=== PATIENT | male | born 1945 | race Caucasian/White ===

== ENCOUNTER 2019-01-10 16:01 | Inpatient (IN) ==
--- NOTE | 2019-01-10 16:44 | EKG Report ---
Test Performed on : 01/10/2019 4:16:22 PM Test Reason : SOB Blood Pressure : / mmHG Vent. Rate : 132 BPM Atrial Rate : 132 BPM P-R Int : 142 ms QRS Dur : 100 ms QT Int : 394 ms P-R-T Axes : 034 005 105 degrees QTc Int : 583 ms Sinus tachycardia. Possible Inferior infarct , age undetermined Cannot rule out Anterior infarct , age undetermined ST & T wave abnormality, consider lateral ischemia Abnormal ECG When compared with ECG of 12-SEP-2013 10:36, Vent. rate has increased BY 67 BPM Borderline criteria for Inferior infarct are now present ST less depressed in Lateral leads T wave inversion less evident in Anterolateral leads Unconfirmed Result
--- NOTE | 2019-01-10 16:50 | Diag Imaging Result Doc PS360 ---
CHEST-PORTABLE - 01/10/2019 INDICATION: SOB, hypotension COMPARISON: 10/24/2018 FINDINGS: There are sternotomy wires. There are extensive metallic stents in the aortic arch and descending thoracic aorta. Heart size and pulmonary vascularity is top normal. Lung volumes are low. There is some opacification or effusion at the left lung base. This is indeterminate. IMPRESSION: Low lung volumes. Possible small effusion at the left lung base. This is indeterminate. Electronically signed by Hiren Mora 01/10/2019 4:48 PM
[2019-01-10 16:56] LABS: BASO# 0.01 X1000 (0.0-0.2); HEMATOCRIT 27.5 % (42.0-52.0); HEMOGLOBIN 8.6 g/dL (14.0-18.0); IMM GRAN# 0.11 X1000 (0.0-0.04); IMM GRAN% 0.5 % (0.0-0.5); LYMPH# 1.15 X1000 (1.2-3.4); LYMPH% 5.6 % (20.5-51.1); MCH 26.9 PG (27-31); MCHC 31.3 g/dL (33-37); MCV 85.9 FL (81-99); MONO# 1.41 X1000 (0.11-0.59); MONO% 6.9 % (1.7-9.3); MPV 11.5 FL (7.4-10.4); NEUT# 17.89 X1000 (1.4-6.5); PLT 418 X1000 (130-400); WBC 20.57 X1000 (4.8-10.8)
[2019-01-10 17:04] LABS: PTT 72.5 Seconds (22.3-41.8)
[2019-01-10 17:11] LABS: ALBUMIN 3.4 g/dL (3.5-5.0); CREATININE 1.6 mg/dL (0.7-1.2); LYMPHS 6 % (21-51); MONO 3 % (1-9); POTASSIUM 4.6 mmol/L (3.5-5.1); SEGS 91 % (42-75); TOTAL BILIRUBIN 0.68 mg/dL (0.20-1.00); TOTAL PROTEIN 6.8 g/dL (6.3-8.3)
[2019-01-10 17:12] LABS: PROTIME 72.8 Seconds (11.0-16.0)
[2019-01-10 17:15] LABS: INR 8.37
--- NOTE | 2019-01-10 18:56 | Diag Imaging Result Doc PS360 ---
CT ANGIOGRAM THORAX/ABD/PELVIS - 01/10/2019 INDICATION: hypotension, recent AAA repair TECHNIQUE: Axial CT images were obtained after administering intravenous contrast. Three-dimensional angiographic images were generated. COMPARISON: 10/24/2018 FINDINGS: There is no significant change in the large Reed type a aortic dissection, that begins in the ascending aorta and progresses all the way to the right common femoral artery. There are now several metallic stents in the true lumen at the aortic arch and proximal descending thoracic aorta. The false lumen remains patent. There is moderate atelectasis of the basilar is portion of the left lower lobe. Otherwise the lungs are clear. There is stable left renal atrophy. Small gallstone in the gallbladder. Otherwise abdominal organs are normal. Abdominal and pelvic contents are otherwise normal. In the right thigh, there is a partially imaged large complicated intramuscular fluid collection. This demonstrates a hematocrit level and is likely an acute contained hematoma. This measures 11 x 11 cm. This is in the medial thigh, just behind the superficial femoral vessels. Presumably this arises from one of the deep femoral arteries. No visible active contrast extravasation. IMPRESSION: Large intramuscular hematoma in the medial right thigh. This likely arises from a deep femoral artery branch. No active contrast extravasation at this time. This exam was performed using automated exposure control, adjustment of mA or kV according to patient size, and/or use of iterative reconstruction technique Electronically signed by Hiren Mora 01/10/2019 6:54 PM
--- NOTE | 2019-01-10 19:30 | PROVIDER DOCUMENTATION ---
This chart was entered by Cristina Wallace Scribe, acting as scribe for Jimmy Haji MD. HPI-General Adult - General Chief Complaint: Groin Pain Stated Complaint: WEAKNESS,SOB,RT GROIN PAIN Time Seen by Provider: 01/10/19 16:21 Source: patient Allergies/Adverse Reactions: Patient Allergies Allergy/AdvReac Type Severity Reaction Status Date / Time benzonatate Allergy Mild DIARRHEA Verified 01/10/19 16:23 [From Tessalaravind Perlbárbara] losartan [From Cozaar] Allergy Unknown Verified 01/10/19 16:23 scallops Allergy Unknown Verified 01/10/19 16:23 aspartame AdvReac HEADACHE Verified 01/10/19 16:55 Home Medications: Home Medication List Medication Instructions Recorded Confirmed Last Taken Type Aspirin 81 mg PO DAILY 01/10/19 01/10/19 01/09/19 History Brimonidine/Timolol Ophth Soln 2 drp OPHTHALMIC (EYE) DAILY 01/10/19 01/10/19 Unknown History [Combigan Ophth Soln] Citalopram [Celexa] 10 mg PO DAILY 01/10/19 01/10/19 01/09/19 History Docusate Sodium 100 mg PO TID 01/10/19 01/10/19 Unknown History Enoxaparin Sodium [Lovenox] 100 mg SQ BID 01/10/19 01/10/19 01/10/19 History Furosemide 80 mg PO DAILY 01/10/19 01/10/19 01/09/19 History Liraglutide [Victoza] 1 unit SQ DAILY 01/10/19 01/10/19 01/09/19 History Multivit-Min/FA/Lycopen/Lutein 1 tab PO DAILY 01/10/19 01/10/19 01/09/19 History [Centrum Silver Men Tablet] PRAVAstatin [Pravachol] 40 mg PO DAILY 01/10/19 01/10/19 01/09/19 History Potassium Chloride 10 meq PO DAILY 01/10/19 01/10/19 01/09/19 History Trazodone [Desyrel] 50 mg PO HS 01/10/19 01/10/19 01/10/19 History Ubidecarenone [Coq-10] 300 mg PO DAILY 01/10/19 01/10/19 01/09/19 History Warfarin Sodium 5 mg PO DAILY 01/10/19 01/10/19 01/09/19 History - History of Present Illness -Gen Adult Nature of Presenting Problems: Patient is a 73 year old male who presents with right groin pain and shortness of breath. States symptoms have been present for 4 days. Reports having surgery to repair AAA at [facility] on 12/25/2018 and was discharged home on 01/04/2019. States he recently finished taking his Lovenox 2 days ago. Location of Pain/Injury: reports: other (right groin) Pain Radiation: reports: no radiation Quality of Pain: reports: aching Severity: reports: mild Onset/Duration: reports: 4 days ago Timing: reports: still present Context/Activities at Onset: reports: light activity Associated Symptoms: reports: shortness of breath Similar Symptoms Previously?: Yes Recently seen or treated by another doctor?: Yes Review of Systems - Adult - REVIEW OF SYSTEMS - ADULT Constitutional: reports: no symptoms reported. denies: chills, fever, fatique Eyes: reports: no symptoms reported Ears, Nose, Mouth & Throat: reports: no symptoms reported Cardiovascular: reports: no symptoms reported Respiratory: reports: see HPI, shortness of breath. denies: cough, wheezing Gastrointestinal: reports: see HPI, other (right groin). denies: abdominal pain, diarrhea, nausea Genitourinary: reports: no symptoms reported Musculoskeletal: reports: no symptoms reported Integumentary: reports: no symptoms reported Neurological: reports: no symptoms reported Psychiatric: reports: no symptoms reported Endocrine: reports: no symptoms reported Hematologic/Lymphatic: reports: no symptoms reported Allergic/Immunologic: reports: no symptoms reported All Other Systems: Reviewed and Negative Past History - Adult - PAST MEDICAL HISTORY-ADULT Review of Records: reports: Old Records Reviewed, Nursing Assessment Review, Medications Reviewed, Social history reviewed & non-contributory. Major Childhood Illnesses: reports: denies history Cardiovascular: reports: hyperlipidemia Respiratory: reports: denies history Gastrointestinal: reports: GERD Obstetrical/Gynecological: reports: denies history Genitourinary: reports: denies history Musculoskeletal: reports: denies history Neurological: reports: denies history Psychiatric: reports: denies history Endocrine/Immune: reports: denies history Other Conditions: reports: denies history - PRIOR SURGERIES/PROCEDURES Surgical/Procedure History: reports: hernia repair - IMMUNIZATION STATUS Childhood Immunizations: See Nurse Assessment Flu Vaccine: See Nurse Assessment - FAMILY HISTORY Family History: reviewed, not pertinent - SOCIAL HISTORY Smoking: denies Substance Use: denies Living Situation: family Physical Exam-General - PHYSICAL EXAM-ADULT Initial Vital Signs Reviewed: Yes - CONSTITUTIONAL General Appearance: alert, no apparent distress. negative: lethargic - EYES Eyes: PERRL/EOMI, pale conjunctivae. negative: sunken eyes - HEAD, EARS, NOSE, MOUTH & THROAT HENMT: normocephalic/atraumatic, moist mucous membranes. negative: angioedema - NECK Neck: non-tender, other (well healing post op site to left side neck). negative: limited range of motion - RESPIRATORY Respiratory: chest non-tender, lungs clear, decreased breath sounds (left), other (diffuse ecchymosis to chest). negative: crackles, rales, stridor - CARDIOVASCULAR Cardiovascular: normal peripheral pulses, regular rate, rhythm. negative: tachycardia - GASTROINTESTINAL (ABDOMEN) Abdominal Exam: normal bowel sounds, non tender, soft, other (well healing post op sites to bilateral groin. diffuse ecchymosis to abdomen). negative: guarding, rigid - MUSCULOSKELETAL Extremity: non-tender, normal inspection. negative: deformity - SKIN Integumentary: normal turgor, ecchymosis (diffuse to chest and abdomen), pallor. negative: diaphoresis, rash - NEUROLOGIC Neurologic: grossly normal. negative: aphasia, facial droop - PSYCHIATRIC Psych/Mental Status: normal mood/affect, oriented x 3. negative: anxious Progress - PLAN OF CARE/RESULTS Progress/Plan/Lab Results: Vital Signs - 8 hr 01/10/19 16:06 Temperature 97.8 F Pulse Rate 131 H Respiratory Rate 26 H Blood Pressure 75/59 O2 Sat by Pulse Oximetry 96 Result Diagrams: 01/10/19 16:22 01/10/19 16:22 - EKG 1 Time of EKG reading by physician:: 16:16 EKG Read and Signed by:: Jimmy Haji EKG Interpretation (*Must complete 3 of following elements*): Abnormal (cannot r ule out anterior infarct, age undetermined; ST & T wave abnormality, consider lateral ischemia) Rate: 132 Rhythm: sinus tachycardia [place]: normal [place] Interval: normal Comments: possible inferior infarct, age undetermined; - XRAY 1 XRAY Study: Chest Impression: See EMR Report (Signed CHEST-PORTABLE - 01/10/2019 INDICATION: SOB, hypotension COMPARISON: 10/24/2018 FINDINGS: There are sternotomy wires. There are extensive metallic stents in the aortic arch and descending thoracic aorta. Heart size and pulmonary vascularity is top normal. Lung volumes are low. There is some opacification or effusion at the left lung base. This is indeterminate. IMPRESSION: Low lung volumes. Possible small effusion at the left lung base. This is indeterminate. Electronically signed by Hiren Mora 01/10/2019 4:48 PM 01/10/19 1648 Interpreting Physician: Hiren Mora MD Dictated Date/Time: 01/10/19 1646 cc: Jimmy Haji MD; Obed Mishra MD) - CT/MRI 1 MRI Study: Abdomen, Chest, Pelvis Impression: Abnormal (large R thigh hematoma) - CONSULTS/PCP/HOSPITALIST Notification #1 *Consult/PCP/Hospitalist*: Danica Time Discussed: 19:30 Consult Disposition: Will see in ED, Admit Departure - Departure Date of Disposition Decision: 01/10/19 Time of Disposition Decision: 19:25 DIAGNOSIS: Atrial fibrillation with rapid ventricular response, Coagulopathy, Hypotension Disposition: ADMITTED INPATIENT 09 Certified Medical Emergency: Emergent Condition: Good Additional Freetext Instructions: ED Follow Up Instructions: You have been treated by a care provider in the Emergency Department. These instructions are being provided to you so you can have an understanding of how to care for yourself upon discharge. Upon discharge from the Emergency Department, you are responsible for making arrangements for follow-up care by a physician of your choice. Take all prescribed medications as directed. Return to the Emergency Department immediately for any new or worsening symptoms. You may call the Physician Referral phone number at [phone] to obtain a list of Physicians who are taking new patients. Referrals and Follow-Ups: Obed Mishra MD [Primary Care Provider] - - Critical Care Note This patient required my direct & personal management of CC.: No Attestation - Physician/ MILAD Attestation Patient care was provided by Advanced Practice Provider:: No The physician spent face to face time with patient:: Yes Advanced Practice Provider documentation review:: Supervising physician onsite and consulted in the evaluation and care of this patient. The physician did have a face to face encounter with the patient. This chart was documented by the indicated scribe, (Cristina Wallace Scribe) and accurately reflects the services I performed and decisions made by me, Jimmy Haji MD, as attested by the provider's signature.
[2019-01-10] MEDS ORDERED: ZOFRAN IV PRN (19:55)
[2019-01-10] MEDS ORDERED: TYLENOL PO PRN (19:55)
[2019-01-10] MEDS ORDERED: MORPHINE IV PRN ×2 (19:55→21:23)
--- NOTE | 2019-01-11 06:42 | PROGRESS NOTE ---
DATE: 01/11/2019 SUBJECTIVE: The patient was awake when I came in the room earlier this morning. He was alert and oriented. He really had no complaints. He denied any shortness of breath or palpitations. OBJECTIVE: Vital Signs: 98.0, 112, 23, 116/66, and 94% saturated on room air. Lungs: Clear. Cardiovascular: Regular tachycardia. There is a metallic clicking sound with faint systolic murmur. This is baseline for him. He is moderately tachypneic with respiratory rate over 20. Extremities: No peripheral edema. Skin: Multiple scattered ecchymoses. LABORATORY: Laboratory has been drawn this morning, but is still pending at time of dictation. ASSESSMENT AND PLAN: 1. The patient's right femoral hematoma appears to be stable. 2. The patient's tachycardia persists. I am going to consult Cardiology as his blood pressure is going to make that a little bit more difficult to manage. The patient is also moderately tachypneic, and I am not sure why that is. 3. We have held the patient's Coumadin. We are checking an INR this morning. We may have to apply some type of reversal agent for the time being. I would like to just leave it alone. 4. The patient's heart valve appears stable. 5. History of intracranial hemorrhage. He is obviously concerning since his INR was so far out. He does not seem to have any neurological signs or symptoms that would be consistent with further extension of the intracranial hemorrhage. 6. Diabetes mellitus. Will be followed at a distance as this has not really been a big problem for him in the past. cc: Obed Mishra MD
[2019-01-11 06:50] LABS: BASO# 0.01 X1000 (0.0-0.2); BASO% 0.1 % (0.0-0.8); EOS# 0.01 X1000 (0.0-0.7); EOS% 0.1 % (0.0-10.0); HEMATOCRIT 23.4 % (42.0-52.0); HEMOGLOBIN 7.3 g/dL (14.0-18.0); LYMPH# 1.73 X1000 (1.2-3.4); MCH 27.7 PG (27-31); MCHC 31.2 g/dL (33-37); MCV 88.6 FL (81-99); MONO# 1.65 X1000 (0.11-0.59); MONO% 8.6 % (1.7-9.3); NEUT# 15.87 X1000 (1.4-6.5); NEUT% 82.2 % (42.2-75.2); PLT 355 X1000 (130-400); PTT 67.5 Seconds (22.3-41.8); RBC 2.64 XMIL (4.7-6.1); RDW 16.2 % (11.5-14.5); WBC 19.27 X1000 (4.8-10.8)
[2019-01-11 06:54] LABS: PROTIME 73.1 Seconds (11.0-16.0)
[2019-01-11 06:56] LABS: INR 8.42
[2019-01-11 07:09] LABS: AGAP 13; ALBUMIN 2.9 g/dL (3.5-5.0); ALKALINE PHOSPHATASE 84 U/L (32-122); BUN 36 mg/dL (8-22); CALCIUM 9.2 mg/dL (8.8-10.2); CHLORIDE 99 mmol/L (98-107); COSMO 290; CREATININE 1.1 mg/dL (0.7-1.2); ESTIMATED GFR > 60; GLUCOSE 166 mg/dL (70-104); GOT 35 U/L (10-34); GPT 52 U/L (10-44); MAGNESIUM 2.2 mg/dL (1.5-2.7); SODIUM 139 mmol/L (136-145); TCO2 27 mmol/L (25-35); TOTAL BILIRUBIN 0.51 mg/dL (0.20-1.00); TOTAL PROTEIN 5.8 g/dL (6.3-8.3)
[2019-01-11] MEDS ORDERED: VITAMIN K SUBQ ONE (07:18)
[2019-01-11] MEDS ORDERED: NS 1,000 ML ONE (08:53)
[2019-01-11] MEDS: COLACE PO SCH ×2 (08:57→17:59)
[2019-01-11] MEDS ORDERED: COENZYME Q10 PO SCH (09:00)
[2019-01-11] MEDS ORDERED: KLOR-CON PO SCH (09:00)
[2019-01-11] MEDS ORDERED: VICTOZA SUBQ SCH (09:00)
[2019-01-11] MEDS ORDERED: LASIX PO SCH (09:00)
[2019-01-11] MEDS ORDERED: COMBIGAN OPHTH SOLN RIGHT EYE SCH (09:00)
[2019-01-11] MEDS ORDERED: CELEXA PO SCH (09:00)
[2019-01-11] MEDS ORDERED: PRAVACHOL PO SCH (09:00)
[2019-01-11] MEDS ORDERED: INSULIN PEN NEEDLES ONE (09:05)
[2019-01-11] MEDS ORDERED: LASIX IV ONE ×2 (10:39→10:52)
--- NOTE | 2019-01-11 11:03 | CARDIOLOGY CONSULTATION ---
DATE: 01/11/2019 CONSULTATION REQUESTED BY: Dr. Mishra. REASON FOR CONSULTATION: A patient with pain in the groin, tachycardia and weakness. HISTORY: Mr. Dietz is an unfortunate 73-year-old male who recently underwent an aneurysm repair procedure, very complex one, at [facility]. He was discharged on 01/04/2019. He says that a couple of days later, he started having pain in the right groin and upper thigh. This got worse over the course of the ensuing days, and yesterday the pain was so bad that he called Dr. 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 He presented to the ER at 4:30 p.m. with swollen legs. They did a CT scan of the chest, abdomen, and pelvis on 01/10/2019 that shows a large intramuscular hematoma in the medial right thigh. This likely arises from a deep femoral artery branch. There is a large Cashiers type A aortic dissection that begins in the ascending aorta and progresses all the way down to the right common femoral artery. The patient's initial hemoglobin was 8.6. Initial INR was 8.37. Subsequent hemoglobin this morning 7.3. INR is 8.42. The patient has been admitted to the PVC unit bed 201 for further care. I have not been even called yet in consult. I found the name on the patient list this morning and after reviewing the records, I realized the situation was potentially critical. The patient at the bedside looks pale. He has trouble recollecting events because he says that during his hospital stay at [facility], he had an intracranial bleed and they had to discontinue anticoagulation for a few days. The patient has no home monitoring system to check his Pro-time INR. He is not aware of home health nurses going to his house to check on him. He says that the pain and swelling of the groin and thigh have increased over the course of the preceding 40 hours prior to coming to the emergency room department. He has not experienced any chest pain. He just feels weak. PAST MEDICAL HISTORY: His past history according to our office records is extensive and includes aortic valve repair or replacement in 2001 for a large ascending aneurysm with aortic insufficiency. Then in 2013, he had a type B uncomplicated aortic dissection. 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 Now his thoracic aneurysm has dilated to 6.[address] Joe from [facility] referred the patient to Dr. Adair Villagran for consideration of operative management. Dr. Villagran saw him on 11/12/2018 and planned his surgery in advance, and this was done successfully on 12/25/2018, however, complications arose including the intracranial bleed and that led to some modification of his anticoagulation regimen. Additional history includes hypertension, hyperlipidemia, history of skin cancer. PAST SURGICAL HISTORY: includes hernia and oral surgery. SOCIAL HISTORY: He is . He has no children. FAMILY HISTORY: Mother had coronary heart disease. HOME MEDICATIONS: At the time of this admission included 1. Aspirin 81 daily. 2. Eye drops. 3. Celexa 10 mg daily. 4. Docusate 100 three times a day. 5. Lovenox 100 twice a day. 6. Furosemide 80 mg daily. 7. Victoza 1 unit daily. 8. Potassium chloride 10 mEq daily. 9. Pravastatin 40 mg daily. 10. Trazodone 50 mg at bedtime. 11. Co Q10 300 daily. 12. Warfarin sodium 5 mg daily. ALLERGIES: He is intolerant to 1. Benzonatate. 2. Losartan. 3. Scallops. 4. Aspartame. REVIEW OF SYSTEMS: At this time, it is difficult to obtain because the patient is somewhat foggy in his mind. His recollection is not too good. He recalls having pain in both legs yesterday. This morning, he is feeling fine. He has good palpable pulses in the feet. PHYSICAL EXAM: General: He appears to be pale. He is awake, alert, in no distress. Cooperates. Vital Signs: Temperature 98 degrees, pulse 110, respirations 23, blood pressure 116/66. HEENT: No jugular venous distention. Chest: There is a scar of recent surgical procedures on both sides of the subclavicular area. Chest shows symmetrical breath sounds. I do not hear rales. Heart: Heart sounds are regular and rhythmic. Closing click of mechanical aortic valve. I do not hear murmur. Abdomen: Nontender, soft. Extremities: Shows swelling of the right thigh. I do not feel a pulsatile mass. There is diffuse swelling of the right leg, a little less on the left leg. Pulses are palpable in both feet. 2+ in intensity over 4+. Neurological: He follows commands. Moves all four extremities. He has no obvious weakness. IMPRESSION: 1. Patient who presents with swelling and pain of the right thigh and right groin following a complicated surgical procedure to repair a type B type of dissecting aneurysm. CT indicates presence of large hematoma possibly arising from deep femoral artery branch. 2. Status post mechanical aortic valve replacement. 3. Coumadin toxicity. 4. Anemia secondary to bleeding. 5. History of hypertension, hyperlipidemia. RECOMMENDATION: At this time, we are going to give vitamin K, fresh frozen plasma and packed red blood cells. I have contacted Dr. Villagran over the telephone. I spoke with him as he was in the operating room and explained to him the situation. I felt that this patient really needs to be cared for at a high level of care facility. He is in agreement and he is going to make proper arrangements to transfer the patient to [facility]. The patient at this time appears to be grossly hemodynamically stable. We will monitor him while he is stays at [facility]. I have contacted Dr. Obed Mishra, who is the admitting doctor. He is in agreement. We will see how he does thereafter. cc: MD Obed Law MD [facility]
[2019-01-11 18:46] LABS: BASO# 0.01 X1000 (0.0-0.2); BASO% 0.1 % (0.0-0.8); EOS# 0.01 X1000 (0.0-0.7); EOS% 0.1 % (0.0-10.0); HEMATOCRIT 23.8 % (42.0-52.0); HEMOGLOBIN 7.7 g/dL (14.0-18.0); IMM GRAN# 0.07 X1000 (0.0-0.04); IMM GRAN% 0.4 % (0.0-0.5); LYMPH% 5.3 % (20.5-51.1); MCHC 32.4 g/dL (33-37); MCV 86.5 FL (81-99); MONO# 1.41 X1000 (0.11-0.59); MONO% 8.3 % (1.7-9.3); MPV 10.2 FL (7.4-10.4); NEUT# 14.58 X1000 (1.4-6.5); NEUT% 85.8 % (42.2-75.2); PLT 320 X1000 (130-400); RBC 2.75 XMIL (4.7-6.1); RDW 15.9 % (11.5-14.5); WBC 16.98 X1000 (4.8-10.8)
[2019-01-11 18:55] LABS: INR 3.5; PROTIME 36.2 Seconds (11.0-16.0)
[2019-01-11 19:10] LABS: LYMPHS 6 % (21-51); MONO 1 % (1-9); SEGS 93 % (42-75)
[2019-01-11 19:11] LABS: ANISOCYTOSIS OCCASIONAL; LARGE PLATELETS OCCASIONAL; POIKILOCYTOSIS OCCASIONAL
--- NOTE | 2019-01-11 19:31 | VASCULAR LAB ---
DATE: 01/11/2019 INDICATION: Rule out pseudoaneurysm. 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 REQUESTING PHYSICIAN: Francisco Salinas MD. FINDINGS: There was hematoma visualized in the right groin; however, was no evidence of flow to suggest a pseudoaneurysm and no evidence of active extravasation on this exam. SUMMARY: No obvious evidence of extravasation or pseudoaneurysm into the right groin hematoma. Would recommend correlation with angiography as indicated. cc: MD Francisco Ramon MD Timothy P. Weirich, MD
[2019-01-11 19:35] VITALS: BP 118/76
[2019-01-11] MEDS ORDERED: DESYREL PO SCH (21:00)
--- NOTE | 2019-01-15 05:21 | DISCHARGE SUMMARY ---
ADMISSION DATE: 01/10/2019 DISCHARGE DATE: 01/11/2019 DISCHARGE DIAGNOSES: 1. Right thigh hematoma. 2. Status post repair of aortic dissection. 3. Iatrogenic bleeding. 4. Toxicity of anticoagulant. 5. Hypertension. 6. Diabetes mellitus type 2. HOSPITAL COURSE: Patient was admitted with a thigh hematoma and an INR of over 8. I took the patient in overnight, and gave him a little bit of vitamin K. We had arterial Doppler's done the next day as the patient had recently had an aortic dissection repair with subclavian to carotid anastomosis. He also has chronic ischemic heart disease. When he came with his elevated INR, he was stable although his heart rate was high and his breathing was a little bit tachypneic. He did well overnight. The following morning he had a cardiology consultation and Dr. Salinas thought it was advisable that the patient be transferred back to [facility], and he arranged this. At the time of departure, the patient's blood pressure and heart rate were reasonably well controlled. cc: Obed Mishra MD
== END 2019-01-11 20:14 | disposition short-term general hospital (02) | DRG 813 ==
LOC: ED 16:01 → 2N 21:10
PROVIDERS: ADMIT Internal Medicine; ATTEND Internal Medicine